=== PATIENT | male | born 1945 | race Caucasian/White ===

== ENCOUNTER → 2017-05-19 | Outpatient (CLI) | payer MEDICARE, OTHER ==
[~2017-05-19] MED LIST: AMOX875T2 PO; ASPI325T PO; LORTA5 PO; LOSA25TA31 PO; NYST500KS SS
[2017-05-21 05:28] LABS: PSA, FREE 0.5 ng/mL
== END ==
LOC: PLAB 13:37
PROVIDERS: ATTEND Internal Medicine
DX: R97.20 Elevated prostate specific antigen [PSA] (principal)
CPT/HCPCS: 36415; 84153; 84154